=== PATIENT | male | born 1980 | race Caucasian/White ===

== ENCOUNTER 2020-03-23 14:58 | Emergency (ER) | payer OTHER, SELFPAY ==
[2020-03-23 15:06] VITALS: BP 139/79; PULSE 64; RESP 20; TEMP 36.3; O2SAT 100
--- NOTE | 2020-03-23 15:15 | ED.GENADULT ---
HPI - General Adult General Chief complaint: Skin/Abscess/Foreign Body Stated complaint: rash Time Seen by Provider: 03/23/20 15:16 Source: patient Mode of arrival: ambulatory Limitations: no limitations History of Present Illness HPI narrative: 40-year-old male patient presents to the [facility] with complaints of a rash since yesterday. Patient states that the rashes on his face, neck, bilateral arms and genital area. Patient states the rash is very itchy. Patient states he is highly allergic to poison maxine and poison oak. Patient denies coming into contact with anything but states that he does have a dog that likes to go out into the [place] that he is concerned that he might of gotten from. Patient denies any chest pain or shortness of breath. Patient states he did try taking some Benadryl yesterday and today. Related Data Allergies Allergy/AdvReac Type Severity Reaction Status Date / Time No Known Allergies Allergy Verified 03/23/20 15:14 Review of Systems Review of Systems: Narrative: CONSTITUTIONAL: Denies fever, chills, or sweats. EYES: Denies visual changes, redness, or discharge. ENT: Denies rhinorrhea, congestion, sore throat, or otalgia. CARDIOVASCULAR: Denies chest pain, palpitations, or edema. RESPIRATORY: Denies cough or dyspnea. GASTROINTESTINAL: Denies abdominal pain, nausea, vomiting, or diarrhea. GENITOURINARY: Denies dysuria or hematuria. SKIN: Positive rash with itching to face, bilateral upper extremities, neck and genital area since yesterday MUSCULOSKELETAL: Denies back pain, joint pain, or myalgia. NEUROLOGIC: Denies headache, numbness, or weakness. PSYCHIATRIC: Denies anxiety or depression. PMFSH Social History Social History Smoking status: Never smoker Alcohol intake: current Exam Narrative: Exam Narrative: GENERAL: Well-appearing, well-nourished, and in no acute distress. HEAD: Normocephalic, atraumatic. EYES: PERRLA and EOMI. ENT: Nares clear, no rhinorrhea or epistaxis. Mucous membranes moist. Posterior pharynx with no erythema, tonsil enlargement, exudates or lesions present. NECK: Supple. No lymphadenopathy. No stridor noted. CHEST: Clear to auscultation. No respiratory distress. Patient able talk in clear complete sentences. HEART: Regular rate and rhythm. No murmur heard. Normal peripheral pulses. ABDOMEN: Soft, nontender, nondistended, normal active bowel sounds. EXTREMITIES: Normal range of motion. No edema. SKIN: Warm, dry, patient does have an erythemic rash on erythemic base some areas are macules, papules. There is this rash similar to the neck, face and bilateral upper extremities. Patient does have some swelling noted to bilateral eyelids. NEURO: No focal deficits. Alert and oriented x3. Course Vital Signs Vital signs: Vital Signs Temperature 36.3 C L 03/23/20 15:06 Pulse Rate 64 03/23/20 15:06 Respiratory Rate 20 03/23/20 15:06 Blood Pressure 139/79 03/23/20 15:06 Pulse Oximetry 100 03/23/20 15:06 Temperature 36.3 C L 03/23/20 15:06 Pulse Rate 64 03/23/20 15:06 Respiratory Rate 20 03/23/20 15:06 Blood Pressure 139/79 03/23/20 15:06 Pulse Oximetry 100 03/23/20 15:06 Vital signs reviewed The patient has been informed that they may have pre-hypertension or Hypertension based on a BP reading in the department. I recommend that the patient call the primary care provider listed on their discharge instructions or a physician of their choice this week to arrange follow up for further evaluation of possible pre-hypertension or Hypertension Medical Decision Making Differential Diagnosis Differential Diagnosis: Differential diagnosis: Contact dermatitis, poison maxine, poison sumac, psoriasis, eczema, allergic reaction, drug reaction, scabies, tinea syphilis, lung disease, viral exanthema, pityriasis, erythema multiforme. Discussed with patient that this could definitely be some type of poison maxine or poison poison oak it definitely does look li
== END 2020-03-23 15:26 | disposition home or self-care (01) ==
PROVIDERS: Emergency Provider Nurse Practitioner Family; PCP Emergency Medicine
DX: L23.9 Allergic contact dermatitis, unspecified cause (principal)
CPT/HCPCS: 99213; G0463

== ENCOUNTER 2023-03-25 09:36 | Outpatient (CLI) | payer BC, SELFPAY ==
--- NOTE | ~2023-03-25 | CT_ITS ---
CT ANGIOGRAM NECK AND HEAD History: Syncope. Technique: Serial spiral axial images through the head and neck were obtained during arterial phase I V injection of 100 cc of Omnipaque 350. 3-D postprocessing and MIP images were then reconstructed on the remote workstation. Dose reduction technique was used on this scan by utilizing automated exposur e control and iterative reconstruction technique. The dose-length product (DLP) was 815.72 mGy-cm. CTA neck findings: Bilateral vertebral arteries are patent. Bilateral common carotid, internal carot id, and external carotid arteries are patent. No large vessel occlusion. No stenosis or aneurysm. The proximal right internal carotid artery demonstrates 0% stenosis relative to the normal distal artery lumen diameter. The proximal left internal carotid artery demonstrates 0% stenosis relative to the n ormal distal artery lumen diameter. CTA head findings: Distal vertebral arteries, basilar artery, and posterior cerebral arteries are pat ent. Distal internal carotid arteries, middle cerebral arteries, and anterior cerebral arteries are p atent. No large vessel occlusion. No stenosis or aneurysm. Impression: Unremarkable exam. Reviewed, dictated and finalized at location M. [employer] Impression: Unremarkable exam.
[2023-03-25 09:54] LABS: Estimated Glomerular Filt Rate > 60
== END 2023-03-25 09:37 ==
LOC: MICIMG 09:38
PROVIDERS: PCP Emergency Medicine; Visit Provider Emergency Medicine
DX: R55 Syncope and collapse (principal)
CPT/HCPCS: 70496; 70498; Q9967

== ENCOUNTER 2023-04-12 14:39 | Outpatient (CLI) | payer BC, SELFPAY ==
--- NOTE | 2023-04-12 | ECHO_ITS ---
Patient Info Name: Judah Renner Age: 43 years : 1980 Gender: Male Ht: 72 in Wt: 196 lbs BSA: 2.14 m2 HR: 71 bpm BP: 144 / 90 mmHg Technical Quality: Good Exam Date: 04/12/2023 2:57 PM Exam Location: Echo Lab Patient Status: Outpatient Admit Date: 04/12/2023 Staff Ordering Physician: Torrey Menezes MD Attending Provider: Torrey Menezes MD Referring Physician: Clif MATSON; Exam Type: CA echo doppler color flow Study Info Indications R55 - Syncope and collapse Complete two-dimensional, color flow and Doppler transthoracic echocardiogram is performed. Summary 1. Complete two-dimensional, color flow and Doppler transthoracic echocardiogram is performed. 2. Left ventricular chamber dimension is normal. 3. Left ventricular systolic function is normal, estimated at 65-70%. 4. The left ventricular diastolic function is normal. 5. E/e' 6 is not elevated. 6. Left atrial chamber dimension is moderately enlarged. 7. There is trace mitral valve regurgitation. 8. There is trace pulmonic regurgitation. Left Ventricle E/e' 6 is not elevated. Left ventricular chamber dimension is normal. Left ventricular systolic function is normal, estimated at 65-70%. The left ventricular diastolic function is normal. Right Ventricle Right ventricular systolic function is normal and with normal TAPSE 2.9 cm. Right ventricular chamber dimension is normal. Left Atria Left atrial chamber dimension is moderately enlarged. Right Atria Right atrial chamber dimension is normal. Aortic Valve The aortic valve is trileaflet. There is no aortic valve stenosis. There is no aortic valve regurgitation. Pulmonic Valve There is trace pulmonic regurgitation. Mitral Valve There is no mitral valve stenosis. There is trace mitral valve regurgitation. Tricuspid Valve There is no tricuspid valve regurgitation. Pericardium/Pleural There is no pericardial effusion. Inferior Vena Cava Normal inferior vena cava with >50% collapse upon inspiration consistent with normal right atrial pressure, 5 mmHg. Aorta The aortic root size at the sinus of Valsalva is normal. Left Ventricular Outflow Tract Name Value Normal LVOT 2D LVOT Diameter 2.1 cm LVOT Doppler LVOT Peak Gradient 5 mmHg LVOT Mean Gradient 2 mmHg LVOT VTI 22 cm LVOT VTI/AV VTI Ratio 0.8 LVOT Stroke Volume 80 ml LVOT CO 4.8 l/min LVOT CI 2.2 l/min/m2 Pulmonic Valve Name Value Normal PV Doppler PV Peak Gradient 5 mmHg PV Regurgitation Doppler OH Peak End Diastolic Velocity 73 cm/s Mitral Valve Name
--- NOTE | 2023-04-18 12:05 | WPDHOLTEREM ---
Holter/Event Monitor Holter/Event Monitor Date of procedure: 04/12/23 Holter/Event Procedure: 48 Hr Holter Monitor Indications: Syncope Conclusion: 1. 48 hour holter monitor on 04/12/23. 2. Underlying rhythm is sinus rhythm. HR range 37-150 bpm; average HR 65 bpm. HR at 37 bpm was at 04:58. HR at 150 bpm was at 20:14. 3. There are 24 premature supraventricular complexes and 3 supraventricular couplets. No supraventricular tachycardia. 4. No premature ventricular complexes. No ventricular tachycardia. 5. No sinoatrial or atrioventricular blocks. No significant pauses greater than 2 seconds. 6. No symptoms available for correlation.
== END 2023-04-12 14:40 | disposition home or self-care (01) ==
LOC: ANHCARD 14:41
PROVIDERS: PCP Emergency Medicine; Visit Provider Emergency Medicine
DX: R55 Syncope and collapse (principal)
CPT/HCPCS: 93225; 93226; 93306

== ENCOUNTER 2023-11-11 07:49 | Outpatient (CLI) | payer OTHER, SELFPAY ==
--- NOTE | ~2023-11-11 | XR_ITS ---
EXAMINATION: XR hip RT min 2V DATE: 11/11/2023 08:41 INDICATION: Right hip pain. TECHNIQUE: 2 views of right hip were obtained. COMPARISON: Right hip radiographs 03/24/16 FINDINGS: Bone alignment is normal. No fracture. There is mild right hip osteoarthritis. IMPRESSION: 1. Mild right hip osteoarthritis. Reviewed, dictated and finalized at location A.
--- NOTE | ~2023-11-11 | MR_ITS ---
MRI of the right hip Clinical history: Pain Technique: Coronal T1-weighted, T2-weighted, and proton-density fat-sat images, and axial T1-weighted and proton-density fat-sat images were acquired through the pelvis. Coronal T2-weighted images and c oronal, axial, and sagittal proton-density fat-sat images were acquired through the right hip. Findings: There is no fracture or avascular necrosis of either hip. Bone marrow signals of the proxim al femora and pelvic bones are unremarkable. There is mild chondromalacia the superior aspect of both hip joints. There is minimal spurring at the superolateral acetabular margins bilaterally. No right acetabular labral tear is seen. No hip joint effusion either side. Visualized musculature is unremarkable. No muscle atrophy or edema. Visualized tendons are intact. No bursitis evident. No soft tissue mass or fluid collection evident. IMPRESSION: Minimal degenerative change of both hip joints, as detailed above. Reviewed, dictated and finalized at location .
== END 2023-11-11 07:50 ==
LOC: MICIMG 07:50
PROVIDERS: PCP Emergency Medicine; Visit Provider Emergency Medicine
DX: M16.0 Bilateral primary osteoarthritis of hip (principal)
CPT/HCPCS: 73502; 73721